=== PATIENT | female | born 1965 | race Caucasian/White ===

== ENCOUNTER 2023-09-18 03:04 | Emergency (ER) | payer BC, SELFPAY ==
[2023-09-18 03:06] VITALS: BP 138/86
[2023-09-18] MEDS: ZOFRAN 4 MG IV (03:25)
[2023-09-18] MEDS: TORADOL 30 MG IV (03:25)
[2023-09-18 03:28] LABS: % Basophils 0.7 % (0-2); % Eosinophils 2.2 % (0-6); % Immature Granulocytes 0.2 % (0-0.5); % Lymphocytes 29.2 % (20.5-51.1); % Monocytes 6.7 % (1.7-9.3); Absolute Eosinophils 0.1 10^3/uL (0-0.7); Absolute Lymphocytes 1.6 10^3/uL (1.2-3.4); Absolute Monocytes 0.4 10^3/uL (0.1-0.6); Absolute Neutrophils 3.3 10^3/uL (1.4-6.5); Hematocrit 38.5 % (37.0-47.0); Mean Corp Hgb Conc. 33.8 g/dL (33.0-37.0); Mean Corpuscular Hgb 28.7 pg (27.0-31.0); Mean Platelet Volume 9.6 fL (7.4-10.4); Nucleated Red Blood Cells % 0 %; Platelet Count 250 10^3/uL (130-400); Red Blood Cell Count 4.53 10^6/uL (4.20-5.40); Red Cell Dist. Width 13.1 % (11.5-14.5); White Blood Cell Count 5.4 10^3/uL (4.8-10.8)
[2023-09-18 03:54] LABS: ALT (SGPT) 21 U/L (0-35); AST (SGOT) 27 U/L (14-36); Albumin 4.5 g/dl (3.5-5.0); Alkaline Phosphatase 80 U/L (38-126); Blood Urea Nitrogen 20 mg/dl (7-17); Calcium 9.8 mg/dl (8.4-10.2); Carbon Dioxide 26 mmol/L (22-30); Chloride 106 mmol/L (98-107); Glucose 117 mg/dl (70-99); Lipase 283 U/L (23-300); Potassium 4.4 mmol/L (3.5-5.1); Sodium 138 mmol/L (135-145); Total Bilirubin 0.3 mg/dl (0.2-1.3); Total Protein 7.2 g/dl (6.3-8.2); eGFR > 60.00
--- NOTE | 2023-09-18 04:11 | EDRN ---
Patient feeling much better, updated her on blood work, call ewing in reach, aware waiting on the physician to come in.
--- NOTE | 2023-09-18 04:39 | ED.GENMED ---
History of Present Illness
<CIRA Reardon - Last Filed: 09/18/23 06:22>
General
Chief Complaint: Flank Pain
Source: patient
Exam Limitations: none
Time Seen by Provider: 09/18/23 04:25
Travel History
Have you had any contact with someone who has COVID-19?: No
Do you have any symptoms of coronavirus? Fever > 100 degrees, chills, cough, shortness of breath, sore throat, loss of taste or smell, muscle aches, or headache?: No
History of Present Illness
History of Present Illness:
This is a 58 year female with no significant PMHx who presents to the ED w/ c/o sudden onst of left flank pain x6 hours. The pain radiated to her LLQ, describing it as sharp/stabbing, and rating it 10/10. She had a difficult time finding a
comfortable position and was unable to sit still. She was able to fall asleep but woken up 4 hours later due to this pain. She reports the pain worsened which prompted her to come to the ED. She states she felt nauseous at this time, but denies
vomiting. She denies history of kidney stones, but reports she has been drinking less fluids for the past month. She does have a family history of kidney stones (mother). She denies diaphoresis, chest pain or pressure, shortness of breath, headache
or fever. She denies dysuria, urgency/frequency, or odor with urine.
Past History
<CIRA Reardon - Last Filed: 09/18/23 06:22>
Past History
ED Past Medical History: None
ED Past Surgical History: None
Social History
Alcohol: None
Review of Systems
<CIRA Reardon - Last Filed: 09/18/23 06:22>
Review of Systems
Allergies reviewed?: Yes
All Other Systems: Not applicable
Constitutional: Reports sleep disturbance
EENT: Reports no symptoms
Respiratory: Reports no symptoms
Cardiac: Reports no symptoms
ABD/GI: Reports abdominal pain (LLQ) and nausea
: Reports no symptoms
Musculoskeletal: Reports back pain (Left flank pain)
Skin: Reports no symptoms
Neurological: Reports no symptoms
Endocrine: Reports no symptoms
Hematologic/Lymphatic: Reports no symptoms
Psychiatric: Reports no symptoms
Phy Exam
<CIRA Reardon - Last Filed: 09/18/23 06:22>
General Physical Exam
General Presentation: well appearing and no apparent distress
General Skin: warm and dry
General Habitus: normal
General Mental: alert
General Hydration: appears well hydrated
ENT Exam
ENT Exam: EOMI, pharynx normal, neck supple and normocephalic
Eye Exam
Eye Exam: PERRL, cornea clear and conjunctiva normal
Cardiovascular Exam
Cardiovascular Exam: regular rate/rhythm, no edema, no murmur and normal peripheral pulses
Pulmonary Exam
Pulmonary Exam: lungs clear, no respiratory distress, no rales, no crackles, no rhonchi, no stridor, no wheezing and no cough
Gastrointestinal Exam
Gastrointestinal Exam: normal bowel sounds, non tender, soft, no organomegaly, no pulsatile mass and non distended
Neurological Exam
Neurological Exam: alert, oriented x3, no motor deficits and speech normal
Musculoskeletal Exam
Musculoskeletal Exam: full ROM and no edema
Skin Exam
Skin Exam: normal color, warm/dry, no rash and no petechia
Psychiatric Exam
Psychiatric Exam: normal mood/affect
Course
<CIRA Reardon - Last Filed: 09/18/23 06:22>
Orders/Labs/Results
Orders:
Orders
09/18/23 03:13
IV Insert/Care/Rem.- Treatment PRN
09/18/23 03:16
Complete Blood Count/With Diff Urgent
Comprehensive Metabolic Panel Urgent
Lipase Urgent
09/18/23 03:20
Ketorolac [Toradol] 30 mg .ROUTE .STK-MED ONE
Ondansetron Injectable [Zofran] 4 mg .ROUTE .STK-MED ONE
09/18/23 03:21
Ondansetron Injectable [Zofran] 4 mg IV NOW STA
09/18/23 03:25
Ketorolac [Toradol] 30 mg IV NOW STA
09/18/23 04:37
CT Abd/pel Without Iv Or Oral Urgent
Comment:
Reason For Exam: ACUTE L FLANK PAIN
09/18/23 04:38
0.9% Sodium Chloride 1000 ml [Nss] 1,000 ml IV BOLUS
09/18/23 06:18
Urinalysis Reflex To Culture Urgent
Date Specimen was Collected: 09/18/23
Time Specimen was Collected: 03:13
Abnormal Lab Results
09/18/23
03:16
BUN 20 H mg/dl
(7-17)
Glucose 117 H mg/dl
(70-99)
09/18/23 03:16
09/18/23 03:16
Vital Signs
Initial and Last Documented VS:
Initial Vital Signs
Temp Pulse Resp BP Pulse Ox
98.1 F 78 26 138/86 100
09/18/23 03:06 09/18/23 03:06 09/18/23 03:06 09/18/23 03:06 09/18/23 03:06
Last Documented Vital Signs
Temp Pulse Resp BP Pulse Ox
98.1 F 78 26 138/86 100
09/18/23 03:06 09/18/23 03:06 09/18/23 03:06 09/18/23 03:06 09/18/23 03:06
<Dianne Ortega DO - Last Filed: 09/18/23 06:35>
Orders/Labs/Results
Orders:
Orders
09/18/23 03:13
IV Insert/Care/Rem.- Treatment PRN
09/18/23 03:16
Complete Blood Count/With Diff Urgent
Comprehensive Metabolic Panel Urgent
Lipase Urgent
09/18/23 03:20
Ketorolac [Toradol] 30 mg .ROUTE .STK-MED ONE
Ondansetron Injectable [Zofran] 4 mg .ROUTE .STK-MED ONE
09/18/23 03:21
Ondansetron Injectable [Zofran] 4 mg IV NOW STA
09/18/23 03:25
Ketorolac [Toradol] 30 mg IV NOW STA
09/18/23 04:37
CT Abd/pel Without Iv Or Oral Urgent
Comment:
Reason For Exam: ACUTE L FLANK PAIN
09/18/23 04:38
0.9% Sodium Chloride 1000 ml [Nss] 1,000 ml IV BOLUS
09/18/23 06:18
Urinalysis Reflex To Culture Urgent
Date Specimen was Collected: 09/18/23
Time Specimen was Collected: 03:13
Abnormal Lab Results
09/18/23
03:16
BUN 20 H mg/dl
(7-17)
Glucose 117 H mg/dl
(70-99)
09/18/23 03:16
09/18/23 03:16
Vital Signs
Initial and Last Documented VS:
Initial Vital Signs
Temp Pulse Resp BP Pulse Ox
98.1 F 78 26 138/86 100
09/18/23 03:06 09/18/23 03:06 09/18/23 03:06 09/18/23 03:06 09/18/23 03:06
Last Documented Vital Signs
Temp Pulse Resp BP Pulse Ox
98.1 F 78 26 138/86 100
09/18/23 03:06 09/18/23 03:06 09/18/23 03:06 09/18/23 03:06 09/18/23 03:06
<CIRA Reardon - Last Filed: 09/18/23 06:22>
MDM/Problems Addressed
Differential Diagnosis Includes:
Kidney stone, pyelonephritis, UTI, Diverticulitis
<CIRA Reardon - Last Filed: 09/18/23 06:22>
*Critical Care Note
Total Time (30-74mins, 75-104mins- exclusive of procedures): Not Applicable
<Dianne Ortega DO - Last Filed: 09/18/23 06:35>
*Radiology
Radiology exam reviewed: radiology read reviewed (CAT scan shows a 2 mm stone distal left ureter with mild to moderate hydroureteronephrosis.)
*Pulse Oximetry
Patient hypoxic: no
ED Attending Note
<CIRA Reardon - Last Filed: 09/18/23 06:22>
-
Portions of this chart may have been created with voice recognition software.� Occasional wrong word or��sound alike� substitutions may have occurred due to the inherent limitations of voice recognition software.
<Dianne Ortega DO - Last Filed: 09/18/23 06:35>
ED Attending Note
Patient seen and examined by attending physician: Yes
I performed the substantive portion of visit, reviewed & personally made and approve the management plan that is documented in note by myself or MELANIE.: Yes
I performed a history and physical exam of patient and discussed management with resident, I reviewed resident's note and agree with documented findings and plan of care.: Yes
ED Attending Note:
This is a 58-year-old woman who has history of hyperlipidemia who presents with abrupt onset of left flank pain that began around 11 PM last night, she was able to get to sleep but then awoke at 3 AM with moderate to severe pain that radiates to her
left lower quadrant accompanied with nausea without vomiting. She admits to feeling restless, unable to find a comfortable position. No history of similar episodes of pain in the past. She has not taken anything for discomfort.
She denies dysuria and urgency and or hematuria. She denies fever nor chills.
She does admit to somewhat sporadic and less than ideal oral intake since September 07 when her dog . The family has been morning the family pet loss.
Currently comfortable with complete relief of pain and nausea after an IV dose of Toradol and Zofran.
GENERAL: Alert , in no apparent distress
EYE: anicteric
NECK: Supple, nontender, no meningismus, no significant adenopathy.
ENT: oral mucosa is moist. TM clear b/l, nares patent.
CARDIAC: Regular rate and rhythm. no murmur.
LUNGS: Clear breath sounds bilaterally, no acute respiratory distress, no wheezes/rales/rhonchi
ABDOMEN: Soft, nondistended, without focal tenderness, no r/g, minimal left CVA tenderness with percussion, normoactive BS.
NEUROLOGICAL: Alert and oriented x3, no focal neuro deficits. Gait is dwyer and steady.
SKIN: Warm and dry, normal color, skin intact. No rash.
MUSCULOSKELETAL: No C/C/E. peripheral pulses are full and equal b/l. No palpable tenderness.
PSYCH: Normal and appropriate interaction.
Concern for acute renal colic on the left side/left ureteric stone, other consideration is pyelonephritis, less likely musculoskeletal pain.
Currently pain-free and comfortable.
Labs are unremarkable.
Will plan for CT abdomen pelvis without contrast.
Will check urinalysis.
09/18/2023 0629 AM
Patient remains pain-free and comfortable.
CAT scan shows 2 mm stone distal left ureter with mild to moderate upstream hydroureteronephrosis.
Will discharge to home with a prescription for oral Toradol, Zofran as well as a few Percocet for as needed moderate to severe pain.
Patient has a urologist whom she follows with for pelvic floor dysfunction, recommend follow-up with urologist especially if intermittent renal colic persists after 7 to 10 days.
Return precautions discussed.
Discharge Plan
Departure
Patient Disposition: Home (Routine Discharge)
Date of Disposition: 09/18/23
Time of Disposition: 06:31
Patient with high blood pressure during this ER visit?: No
Condition: Good
Discharge Problem:
Calculus of distal left ureter
Instructions: Kidney Stones (DC), How to Strain Your Urine
Prescriptions:
New
ketorolac 10 mg tablet
10 mg PO Q6H 5 Days Qty: 20 0RF
oxycodone-acetaminophen [Percocet] 5-325 mg Tablet
1 tab PO Q6HPRN PRN (Reason: pain) Qty: 6 0RF
ondansetron 4 mg tablet,disintegrating
4 mg PO QID PRN (Reason: nausea and vomiting) Qty: 20 0RF
No Action
amoxicillin-pot clavulanate 1 TABLET tablet
1 tab PO Q12 Qty: 14 0RF
Referrals:
Sebas Townsend MD [Family Provider] - Call in 1-3 days for appt
Activity Restrictions/Additional Instructions:
Stay well-hydrated on a daily basis.
Follow-up with your urologist for recheck as needed.
If severe pain recurs especially if unrelieved with Toradol/Percocet or if accompanied with intractable vomiting or onset of fever, prompt return to the ER for further evaluation.
Interventions
Interventions:
*Risk Screen - Suicide Last Done: 09/18/23 03:06
*General Assessment Last Done: 09/18/23 03:52
*Neglect/Abuse Screening Last Done: 09/18/23 03:06
ED- Fall Risk Assessment Last Done: 09/18/23 03:52
*ED COVID-19 Vaccine History Last Done: 09/18/23 03:52
NP-Gwutkm-Seilxzvsqu Assessment Last Done: 09/18/23 03:52
ED-Female Genitourinary Assessment Last Done: 09/18/23 03:52
Discharge Date and Time
Print Language: ARABIC
[2023-09-18] MEDS: NSS 1000 IV (04:56)
[2023-09-18 07:04] LABS: Urine Albumin Trace (Neg - Trace); Urine Bilirubin Negative (Negative); Urine Character Slightly Cloudy (Clear); Urine Color Yellow; Urine Glucose Negative (Negative); Urine Ketone Trace (Negative); Urine Leukocyte 1+ (Negative); Urine Nitrite Negative (Negative); Urine Occult Blood 4+ (Negative); Urine Specific Gravity 1.025 (<1.030); Urine Urobilinogen Negative (Neg - 1+)
[2023-09-18 07:29] LABS: Urine Calcium Oxalate Crystals Present
[2023-09-18 07:30] LABS: Urine Bacteria Few (Negative); Urine Red Blood Cell 30-40 /HPF (0-2)
== END 2023-09-18 07:03 | disposition home or self-care (01) ==
LOC: EMR 03:04
PROVIDERS: EMERGENCY PHYSICIAN Emergency Medicine; FAMILY PHYSICIAN Internal Medicine
DX: N13.6 Pyonephrosis (principal); E78.5 Hyperlipidemia, unspecified
CPT/HCPCS: 99284; 96374; 96375; 96361; 74176; 80053; 81003; 81015; 83690; 85025; 87077; 87086; 87147

== ENCOUNTER → 2025-02-20 09:01 | Outpatient (REF) | payer BC, SELFPAY | LOC: HWRCS 09:01 | PROVIDERS: ATTENDING PHYSICIAN Internal Medicine Cardiovascular Disease; FAMILY PHYSICIAN Internal Medicine | DX: I35.8 Other nonrheumatic aortic valve disorders (principal) | CPT/HCPCS: 93306 ==